=== PATIENT | female | born 1970 | race Hispanic/Latino ===

== ENCOUNTER 2024-07-08 20:44 | Emergency (ER) | payer SELFPAY ==
[~2024-07-08] VITALS: Ht 157.5 cm; Wt 68.0 kg
[2024-07-08 21:50] VITALS: RESP 18; TEMP 98.9
[2024-07-08 22:26] LABS: BASOPHILS % 0.3 % (0.0-1.0); EOSINOPHILS # (AUTO) 0.1 (0.0-0.4); EOSINOPHILS % 0.7 % (0.0-6.0); HEMATOCRIT 39.7 % (34.2-44.1); HEMOGLOBIN 13.8 g/dL (12.0-16.0); LYMPHOCYTES # (AUTO) 2.4 (1.0-3.2); LYMPHOCYTES % 26.1 % (18.0-39.1); MEAN CORPUSCULAR HEMOGLOBIN 30.2 pg (28-32); MEAN CORPUSCULAR HGB CONC 34.8 g/dL (31-35); MEAN CORPUSCULAR VOLUME 86.9 fL (81-99); MONOCYTES # (AUTO) 0.8 (0.2-0.8); MONOCYTES % 8.8 % (4.4-11.3); NEUTROPHILS # (AUTO) 5.9 (2.1-6.9); NEUTROPHILS % 63.9 % (38.7-80.0); PLATELET COUNT 219 x10e3/uL (140-360); RED BLOOD COUNT 4.57 x10e6/uL (3.6-5.1); RED CELL DISTRIBUTION WIDTH 12.7 % (11.7-14.4); WHITE BLOOD COUNT 9.16 x10e3/uL (4.8-10.8)
[2024-07-08] MEDS: SODIUM CHLORIDE 0.9% 1000ML 1,000 ML IV STA (22:37)
[2024-07-08 22:41] LABS: ALBUMIN 4.3 g/dL (3.5-5.0); ALBUMIN/GLOBULIN RATIO 1.3 (0.8-2.0); ANION GAP 13.8 mmol/L (8-16); BILIRUBIN,TOTAL 0.7 mg/dL (0.2-1.2); CALCIUM 9.3 mg/dL (8.4-10.2); CREATININE, SERUM 0.7 mg/dL (0.57-1.11); TOTAL PROTEIN 7.7 g/dL (6.5-8.1)
[2024-07-08 22:46] LABS: TROPONIN I 0.004 ng/mL (0-0.300)
[2024-07-08 22:50] LABS: POTASSIUM 2.8 mmol/L (3.5-5.1)
[2024-07-09] MEDS ORDERED: IOPAMIDOL 370 MG/ML 100 ML INFUS..BTL INJ ONE (00:16)
[2024-07-09] MEDS ORDERED: ONDANSETRON ODT4 MG PO (00:26)
[2024-07-09] MEDS ORDERED: DICYCLOMINE HCL10 MG PO (00:26)
[2024-07-09] MEDS: MAGNESIUM/ALUMINUM/SIMETHICONE 30 ML UDC PO STA (00:42)
[2024-07-09] MEDS: LIDOCAINE VISC 2% SOLN 15 ML UDC PO STA (00:42)
[2024-07-09] MEDS: BELLADONNA ALK/PHENOBARBITAL 5 ML UDC PO ONE (00:42)
[2024-07-09 01:00] VITALS: PULSE 65
[2024-07-09 01:05] VITALS: BP 163/76; O2SAT 97
== END 2024-07-09 01:07 | disposition home or self-care (01) ==
LOC: ER 20:57
DX: R10.30 Lower abdominal pain, unspecified (principal); K82.1 Hydrops of gallbladder; K42.9 Umbilical hernia without obstruction or gangrene
CPT/HCPCS: 36415; 74177; 80053; 82550; 83690; 84484; 85025; 99284; J2470; J7030; Q9967